=== PATIENT | male | born 1990 | race Caucasian/White ===

== ENCOUNTER 2018-03-07 20:51 | Emergency (ER) | payer MEDICARE ==
[2018-03-08 00:10] LABS: ABSOLUTE BASOPHILS # (AUTO) 0.1 10^3/uL (0.0-0.2); ABSOLUTE EOSINOPHILS # (AUTO) 0.1 10^3/uL (0.0-0.6); ABSOLUTE LYMPHOCYTES (AUTO) 2.6 10^3/uL (0.5-4.7); ABSOLUTE MONOCYTES (AUTO) 0.4 10^3/uL (0.1-1.4); ABSOLUTE NEUT (AUTO) 5.4 10^3/uL (1.7-8.2); BASOPHILS % (AUTO) 0.9 % (0-2); EOSINOPHILS % (AUTO) 1.4 % (0-6); HEMATOCRIT 40.1 % (37.9-51.0); HEMOGLOBIN 13.9 g/dL (13.5-17.0); LYMPHOCYTES % (AUTO) 30.1 % (13-45); MEAN CORPUSCULAR HEMOGLOBIN 27.3 pg (27.0-33.4); MEAN CORPUSCULAR HGB CONC 34.7 g/dL (32.0-36.0); MEAN CORPUSCULAR VOLUME 79 fl (80-97); MONOCYTES % (AUTO) 4.4 % (3-13); PLATELET COUNT 206 10^3/uL (150-450); RED BLOOD COUNT 5.11 10^6/uL (4.35-5.55); RED CELL DISTRIBUTION WIDTH 13.6 % (11.5-14.0); SEGMENTED NEUTROPHILS % (AUTO) 63.2 % (42-78); TOTAL CELLS COUNTED % (AUTO) 100 %; WHITE BLOOD COUNT 8.6 10^3/uL (4.0-10.5)
[2018-03-08 00:13] LABS: APPEARANCE,URINE CLEAR; BILIRUBIN,URINE NEGATIVE (NEGATIVE); COLOR,URINE YELLOW; GLUCOSE, URINE NEGATIVE (NEGATIVE); KETONES,URINE NEGATIVE (NEGATIVE); LEUKOCYTE ESTERASE,URINE NEGATIVE (NEGATIVE); NITRITE,URINE NEGATIVE (NEGATIVE); PROTEIN,URINE NEGATIVE (NEGATIVE); URINE SPECIFIC GRAVITY 1.028
--- NOTE | 2018-03-08 00:14 | ER Document Report ---
ED General - General Chief Complaint: Heat Exposure Stated Complaint: POSSIBLE HEAT EXHAUSTION Time Seen by Provider: 03/07/18 22:38 Notes: Patient is a 19-year-old male who presents with complaints of suicidal thoughts and depression. He also complains that he was out he for a long period time. Patient says he has history of bipolar disorder. He is to be on medications for this but became expensive and therefore a single film. Initially been [facility]. He then took a bus to [place]. He says he did not know anybody [place]. Said things were not working out there and therefore today took a bus to [place] and is now here. He also does not know anybody in [place]. He says he does not know why he keeps going from town to town. He says he feels a different place may have a better outcome for him. He denies any other medical problems other than bipolar disorder. Says he has had thoughts of suicide and is very depressed. No other complaints at this time. TRAVEL OUTSIDE OF THE [place] IN LAST 30 DAYS: No - Related Data Allergies/Adverse Reactions: No Known Allergies Allergy (Unverified 03/07/18 20:55) Past Medical History - Social History Smoking Status: Current Every Day Smoker Chew tobacco use (# tins/day): No Frequency of alcohol use: None Drug Abuse: None Family History: Reviewed & Not Pertinent Patient has suicidal ideation: No Patient has homicidal ideation: No - Past Medical History Cardiac Medical History: Reports: Hx Hypertension Pulmonary Medical History: Reports: Hx Asthma Renal/ Medical History: Denies: Hx Peritoneal Dialysis Psychiatric Medical History: Reports: Hx Bipolar Disorder - depression Review of Systems - Review of Systems Notes: My Normal Review Basic REVIEW OF SYSTEMS: CONSTITUTIONAL : Denies fever, chills, or sweats. Denies recent illness. EENT: Denies eye, ear, throat, or mouth pain or symptoms. Denies nasal or sinus congestion. CARDIOVASCULAR: Denies chest pain. RESPIRATORY: Denies cough, cold, or chest congestion. Denies shortness of breath, difficulty breathing, or wheezing. GASTROINTESTINAL: Denies abdominal pain. Denies nausea, vomiting, or diarrhea. Denies constipation. Last BM: GENITOURINARY: Denies difficulty urinating, painful urination, burning, frequency, or blood in urine. MUSCULOSKELETAL: Denies neck or back pain or joint pain or swelling. SKIN: [place]burn NEUROLOGICAL: Denies altered mental status or loss of consciousness. Denies headache. Denies weakness or paralysis or loss of use of either side. Denies problems with gait or speech. Denies sensory or motor loss. PSYCHIATRIC: Bipolar disorder ALL OTHER SYSTEMS REVIEWED AND NEGATIVE. Physical Exam - Vital signs Vitals: Temp Pulse Resp BP Pulse Ox 98.6 F 90 18 148/95 H 97 03/07/18 21:12 03/07/18 21:12 03/07/18 21:12 03/07/18 21:12 03/07/18 21:12 - Notes Notes: General Appearance: Well nourished, alert, cooperative, no acute distress, no obvious discomfort. Vitals: reviewed, See vital signs table. Head: no swelling or tenderness to the head Eyes: PERRL, EOMI, Conjuctiva clear Mouth: No decreasd moisture Lungs: No wheezing, No rales, No rhonci, No accessory muscle use, good air exchange bilaterally. Heart: Normal rate, Regular rythm, No murmur, no rub Abdomen: Normal BS, soft, No rigidity, No abdominal tenderness, No guarding, no rebound, no abdominal masses, no organomegaly Extremities: strength 5/5 in all extremities, good pulses in all extremities, no swelling or tenderness in the extremities, no edema. Skin: Sunburn Neuro: speech clear, oriented x 3, normal affect, responds appropriately to questions. Course - Re-evaluation Re-evalutation: 03/08/18 05:52 Patient is medically stable psychiatric evaluation and treatment for his depression and thoughts of suicide and bipolar disorder which is untreated. Dictation of this chart was performed using voice recognition software; therefore, there may be some unintended grammatical errors. - Vital Signs Vital signs: Temp Pulse Resp BP Pulse Ox 98.6 F 90 18 148/95 H 97 03/07/18 21:12 03/07/18 21:12 03/07/18 21:12 03/07/18 21:12 03/07/18 21:12 - Laboratory Result Diagrams: 03/07/18 23:50 03/07/18 23:50 Laboratory results interpreted by me: 03/07/18 03/07/18 03/07/18 23:50 23:50 23:50 MCV 79 L Chloride 109 H Urine Urobilinogen 2.0 H Salicylates < 1.0 L Acetaminophen < 10 L - EKG Interpretation by Me Additional EKG results interpreted by me: 03/08/18 00:13 EKG is reviewed and interpreted by me. EKG shows sinus rhythm with rate of [address] segment elevation or depression. No ischemic T-wave inversions. MN interval, QRS duration, QTc intervals are within normal range. No old EKG available for comparison.
[2018-03-08 00:21] LABS: ALANINE AMINOTRANSFERASE 34 U/L (21-72); ALBUMIN 4.3 g/dL (3.5-5.0); ALKALINE PHOSPHATASE 67 U/L (38-126); ANION GAP 10 (5-19); ASPARTATE AMINO TRANSFERASE 25 U/L (17-59); BILIRUBIN,DIRECT 0.2 mg/dL (0.0-0.4); BLOOD UREA NITROGEN 19 mg/dL (7-20); CALCIUM 9.7 mg/dL (8.4-10.2); CARBON DIOXIDE 25 mmol/L (22-30); CHLORIDE 109 mmol/L (98-107); GLUCOSE 91 mg/dL (75-110); POTASSIUM 4.2 mmol/L (3.6-5.0); SODIUM 143.5 mmol/L (137-145); TOTAL PROTEIN 7.2 g/dL (6.3-8.2)
[2018-03-08 00:22] LABS: ACETAMINOPHEN < 10 ug/mL (10-30); ALCOHOL < 10 mg/dL (NONE DETECTED); SALICYLATE < 1.0 mg/dL (2.0-20.0)
[2018-03-08 00:37] LABS: URINE AMPHETAMINES SCREEN NEGATIVE; URINE BARBITURATES SCREEN NEGATIVE; URINE BENZODIAZEPINES SCREEN NEGATIVE; URINE COCAINE SCREEN NEGATIVE; URINE MARIJUANA (THC) SCREEN NEGATIVE; URINE METHADONE SCREEN NEGATIVE; URINE PHENCYCLIDINE SCREEN NEGATIVE
--- NOTE | 2018-03-08 07:54 | EKG REPORT ---
SEVERITY:- NORMAL ECG - SINUS RHYTHM : Confirmed by: Benson Bacon MD 08-Mar-2018 07:53:41
[2018-03-08 07:56] VITALS: BP 155/90
--- NOTE | 2018-03-08 10:05 | ER Document Report ---
Doctor's Note Notes: 03/08/18 10:02 Rounds: Chart reviewed and patient sleeping and not awakened by my voice so I let him sleep. Patient being evaluated for suicidal ideation and depression. Known bipolar disorder. Not currently on any medications. Vital signs are all normal, except blood pressure 155/90. Lab studies were all normal. Patient appears to be medically stable for transfer or discharge. Dalila Maldonado MD
[2018-03-08] MEDS ORDERED: ACETAMINOPHEN 325 MG TABLET PO ONE (13:24)
--- NOTE | 2018-03-08 13:41 | PSYCHOLOGICAL NOTE ---
Psych Note - Psych Note Psych Note: Reason for Consult: Suicidal ideation Patient is a 19-year-old male who presents with complaints of suicidal thoughts and depression. He also complains that he was out he for a long period time. Patient says he has history of bipolar disorder. He is to be on medications for this but became expensive and therefore a single film. Initially been [place]. He then took a bus to [place]. He says he did not know anybody [place]. Said things were not working out there and therefore today took a bus to [place] and is now here. He also does not know anybody in [place]. He says he does not know why he keeps going from town to [facility]. He says he feels a different place may have a better outcome for him. He denies any other medical problems other than bipolar disorder. Says he has had thoughts of suicide and is very depressed. Patient disclosed that he called EMS yesterday because he was "spacing out and disassociating." Patient reports that he "does not have a purpose...I don't have a purpose." He continued to discuss that he came to [place] because "I thought it would be better." When asked for clarification he stated that he would be better for job opportunities and stated "obviously they are not." When asked how the patient knew that job opportunities were not better here in [place] patient was unable to explain stating that he had not attempted to find a job yet. Clinician notes patient just got into [place] per patient' s report. 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 Patient reports he needs assistance with obtaining outpatient mental health services and housing. Clinician discussed with patient other options such as a support network. He states his mother lives in [place] and is unable to assist because she is on disability. When asked where he was from in [place] he stated he was from [place]. When asked for clarification because these are 2 different states patient became very agitated and told clinician if the clinician just listen to him there would be a problem. Clinician noted patient became even more agitated and stated "I do not need a pamphlet... I need help... That was wrong with Loni today... Nobody will help." Clinician explained that [facility] staff is trying to help; we are just trying to identify natural supports. Patient then stated that if he leaves here he will kill himself when asked if he had a plan patient paused in about 30 seconds stated " I will jump in front of the car." Clinician revisited with patient Patient disclosed that his mother moved to [place] to live with her sister and his brother lives in [place]. He denies they will be a support for him disclosing "they will not get over things I have done to them in the past." Patient disclosed he has been inpatient psychiatric treatment 3 times with [facility], [facility], and [facility]. [place] controlled substance report indicates patient is only received 1 two week prescription for Ritalin back in 2016. Patient disclosed he has picks up his prescriptions from [facility]. Behavior health team contacted [facility]. Patient received and picked up a prescription for venlafaxine 75 mg on September 12, 2017. Patient had only 2 other timeframes where he had prescriptions the first was June 21, 2017 for Latuda 40 mg, Strattera 40 mg and Trazodone 150 mg and Ritalin 20mg which he got 20 pills for 14 days 20 mg twice those prescriptions were repeated July 16, 2017 however patient never picked them up the second time. Patient is alert and orientated to person, place, time and circumstance. Mood is euthymic with congruent affect throughout most of evaluation until asked about personal history at which point patient becomes irritable. Patient threatens passive suicidal ideation when demanding services. Patient denies homicidal ideation. Delusions are absent and behaviors congruent with an intact reality based presentation i.e. organized and linear thought process. Eye contact is fair. Conversational speech is short and irritable. Intellectual abilities appear to be the average range. Attention and concentration are fair. Insight, judgment, impulse control is fair. No medication recommendations at this time Diagnosis V62.9 (Z65.9) unspecified problem related to unspecified psychosocial circumstance V60.0 (Z56.9) homelessness Impression/Plan: Patient is cleared from acute psychiatric services. Patient has been off medications for about 9 months; there is concern the patient is non -compliant (ie does not follow up with outpatient mental health and does not service delivery supervisor filled prescriptions). Patient does not meet IVC criteria [place] 122C. Patient discloses passive suicidal ideation i.e. no plans means or intent. It is noted patient threatened to jump in front of a car if not provided services. Patient discloses social needs and provides forward thinking when stating he wants to get a job and housing. Patient becomes irritable when asked about his history and discloses his family will not help him because "they will not get over things I have done to them in the past." Patient is recommended for outpatient mental health services. Most appropriate services are outpatient therapeutic services to address triggers, coping skills , and problem-solving. Patient has been provided local homeless packet put together by the homeless coalition in addition local providers list. Patient is encouraged to contact mobile crisis, integrated family services, for assistance in continued outpatient mental health services. Dr. Gray was consulted and the care management this patient; attending physician is agreement with her conditions and disposition.
== END 2018-03-08 16:47 | disposition home or self-care (01) ==
LOC: ER 20:51
DX: R45.851 Suicidal ideations (principal); Z59.0 Homelessness; F31.9 Bipolar disorder, unspecified; Z91.14 Patient's other noncompliance with medication regimen; F17.200 Nicotine dependence, unspecified, uncomplicated; I10 Essential (primary) hypertension; J45.909 Unspecified asthma, uncomplicated
CPT/HCPCS: 93005; 99285; 36415; 80307 ×4; 85025; 80053; 81001; 93010; A9270